=== PATIENT | male | born 1945 | race Caucasian/White ===

== ENCOUNTER 2017-03-20 13:10 | Emergency (ER) | payer MEDICARE, BC ==
[~2017-03-20 13:10] MED LIST: ASA5GR PO; ATV1 PO; AUG875 PO; BIST PO; CALTRA600D PO; CALTRAT600 PO; CAT1 PO; CYCLOPHOSPHAMID50 MG PO; DEX4 PO; DIOVAN HCT320 MG/25 PO; DSS PO; DULCOLAX STOOL100 MG PO; DULERA 200 MCG/13 GM INH; ELIQUIS 5 MG TAB5 MG PO; ENDOCET1 TA3 PO; FLOMAX4 PO; KLOR-CON M2020 MEQ PO; L20 PO; LEVAQUIN750 MG PO; LEVOTHYROXIN50 MCG PO; MAGOX4 PO; MIRALAX POWDER1 PKT PO; MIRALAXPKT PO; MOVANTIK25 MG PO; MSCONT100 PO; OXYCONTIN30 MG PO; OXYCONTIN60 MG PO; PAX20 PO; PAXIL40 MG PO; PERI-COLACE1 TAB PO; POMALYST4 MG PO; PR12.5 PO; PR25 PO; PROAIR HFA INH; PROBIOTIC PO; PROTONIX PO; REVLIMID5 MG OR; ROXICODONE15 MG PO; ROXICODONE30 MG PO; SPIRIVA INH; SPIRIVA RESPIMAT INH; SYMBICORT 160/41 INH INH; V5 PO; VELCADE SC; ZOFRAN8 PO; ZOVIRAX400 MG PO; [UNRECOGNIZED DRUG - OTHER] PO
[2017-03-20 15:06] LABS: ASCORBIC ACID (UR NOT ORDER) NEG (NEG); BILIRUBIN, URINE NEGATIVE (NEG); ER URINALYSIS TAT 0 Hrs 07 Mins; KETONE, URINE NEGATIVE (NEG); LEUKOCYTE ESTERASE(NOT OR NEG (NEG); NITRITE (URINE) NEG (NEG); WBC (NOT ORDERED) (RFLEX) 2 (0-5)
[2017-03-20 15:07] LABS: BASOPHILS 0 %; EOSINOPHILS 1.8 %; EOSINOPHILS ABSOLUTE 0.08 10/3/uL (0.0-0.53); IMMATURE GRANULOCYTES 0.4 %; IMMATURE GRANULOCYTES ABSOLUTE 0.02 10/3/uL (0.0-0.11); LYMPHOCYTES 8.4 %; LYMPHOCYTES ABSOLUTE 0.38 10/3/uL (0.67-4.30); MEAN CORPUS HGB CONC 31.4 g/dL (32.0-36.0); MEAN CORPUSCULAR HEMOGLOB 27.2 pg (26.0-34.0); MEAN CORPUSCULAR VOLUME 86.6 fL (80-100); MEAN PLATELET VOLUME 10.2 fL (9.2-13.0); MONOCYTES 9.1 %; MONOCYTES ABSOLUTE 0.41 10/3/uL (0.21-1.20); NEUTROPHILS 80.3 %; NEUTROPHILS ABSOLUTE 3.62 10/3/uL (2.02-8.40); PLATELET COUNT 164 10/3/uL (150-400); RED CELL COUNT 4.41 10/6/uL (4.7-6.1)
[2017-03-20 15:08] LABS: ER CBC TAT 0 Hrs 09 Mins; HEMATOCRIT 38.2 % (40.0-51.0); MANUAL DIFF NO %; WHITE BLOOD CELLS 4.5 10/3/uL (4.5-10.5)
[2017-03-20 15:23] LABS: A/G RATIO 0.8 (0.7-1.9); ALBUMIN 3.2 G/DL (3.5-5.0); ALKALINE PHOSPHATASE 76 U/L (45-117); BUN (BLOOD UREA NITROGEN) 13 MG/DL (6-23); CHLORIDE, SERUM 100 MMOL/L (96-112); CO2 (CARBON DIOXIDE) 33 MMOL/L (24-34); CREATININE 0.84 MG/DL (0.70-1.30); GFR AFRICAN AMERICAN 103 ML/MIN (>=60); GFR NON AFRICAN AMERICAN 89 ML/MIN (>=60); GLOBULIN 4.2 G/DL (2.5-4.1); GLUCOSE, SERUM 100 MG/DL (60-99); POTASSIUM, SERUM 3.6 MMOL/L (3.5-5.3); SGOT(AST) 25 U/L (5-40); SGPT(ALT) 44 U/L (5-65); SODIUM, SERUM 139 MMOL/L (135-148); TOTAL BILIRUBIN 1.3 MG/DL (0-1.2); TOTAL PROTEIN 7.4 G/DL (6.0-8.5)
[2017-03-20 15:28] LABS: LACTATE 1.6 MMOL/L (0.3-2.4)
[2017-03-20 16:05] LABS: INFLUENZA A SCREEN NEGATIVE (NEGATIVE); INFLUENZA B SCREEN NEGATIVE (NEGATIVE)
== END 2017-03-20 19:15 | disposition home or self-care (01) ==
LOC: ER 13:10
PROVIDERS: Emergency Medicine
DX: R50.9 Fever, unspecified (principal); C90.00 Multiple myeloma not having achieved remission; J44.9 Chronic obstructive pulmonary disease, unspecified; I50.9 Heart failure, unspecified; K21.9 Gastro-esophageal reflux disease without esophagitis; E11.9 Type 2 diabetes mellitus without complications; Z88.5 Allergy status to narcotic agent; Z88.8 Allergy status to other drugs, medicaments and biological substances; Z79.899 Other long term (current) drug therapy
CPT/HCPCS: 71010; 80053; 81001; 83605; 85025; 87040; 87804; 93005; 99284